=== PATIENT | male | born 1960 | race Hispanic/Latino ===

== ENCOUNTER 2017-06-03 23:10 | Emergency (ER) | payer SELFPAY | END 2017-06-03 23:34 | LOC: EDH 23:10 | DX: Z02.83 Encounter for blood-alcohol and blood-drug test (principal) ==

== ENCOUNTER 2020-11-23 20:23 | Emergency (ER) | payer SELFPAY ==
[~2020-11-23] VITALS: Ht 167.6 cm; Wt 104.3 kg
[2020-11-23 21:03] LABS: APPEARANCE,URINE Clear (CLEAR); BILIRUBIN,URINE Negative (NEGATIVE); COLOR,URINE Yellow (YELLOW); EOSINOPHILS % (AUTO) 2.9 % (0.0-8.0); GLUCOSE, URINE (UA) >=1000 mg/dL (NEGATIVE); HEMATOCRIT 43.1 % (42-54); KETONES,URINE Trace mg/dL (NEGATIVE); LEUKOCYTE ESTERASE ,URINE Negative (NEGATIVE); LYMPHOCYTES % (AUTO) 36.8 % (21.0-51.0); MEAN CORPUSCULAR HEMOGLOBIN 32.7 pg (27.0-33.0); MEAN CORPUSCULAR HGB CONC 34.3 g/dL (32.0-36.0); MEAN CORPUSCULAR VOLUME 95.1 fL (79-99); NITRATE,URINE Negative (NEGATIVE); OCCULT BLOOD,URINE Negative (NEGATIVE); PLATELET COUNT (AUTO) 263 K/uL (130-400); PROTEIN,URINE Negative (NEGATIVE); RED BLOOD CELL COUNT(AUTO) 4.53 MIL/uL (4.50-6.20); RED CELL DISTRIBUTION WIDTH 12.5 % (11.0-15.5); WHITE BLOOD COUNT (AUTO) 7.3 K/uL (4.8-10.8)
[2020-11-23 21:20] LABS: BACTERIA,URINE Rare /HPF (None Seen); MUCUS,URINE Few LPF (None Seen); RBC,URINE 0-1 /HPF (0-1); SQUAMOUS EPITHELIAL CELL,UR 0-2 /HPF (0-2); WBC,URINE 0-1 /HPF (0-1)
[2020-11-23 21:32] LABS: CREATININE 1.1 mg/dL (0.5-1.5); POTASSIUM 3.8 mmol/L (3.5-5.1)
[2020-11-23 21:36] LABS: ALBUMIN 3.7 g/dL (3.5-5.0); BILIRUBIN,TOTAL 0.5 mg/dL (0.2-1.0); CRP QUANTITATIVE 12.7 mg/L (0.00-9.0); TOTAL PROTEIN, SERUM 8.4 g/dL (6.0-8.3)
[2020-11-23 22:36] VITALS: BP 144/85
== END 2020-11-23 22:49 | disposition home or self-care (01) ==
LOC: EDH 20:23
DX: R22.31 Localized swelling, mass and lump, right upper limb (principal); E11.9 Type 2 diabetes mellitus without complications; E78.00 Pure hypercholesterolemia, unspecified; I10 Essential (primary) hypertension; E66.9 Obesity, unspecified; Z68.37 Body mass index [BMI] 37.0-37.9, adult; Z79.01 Long term (current) use of anticoagulants; Z86.718 Personal history of other venous thrombosis and embolism
CPT/HCPCS: 36415; 71045; 80053; 81001; 84484; 85025; 85378; 86140; 93005; 93971

== ENCOUNTER 2022-06-06 11:13 | Emergency (ER) | payer BC ==
[~2022-06-06] VITALS: Ht 167.6 cm; Wt 102.1 kg
[2022-06-06 11:35] LABS: BASOPHILS % (AUTO) 1.1 % (0.0-5.0); EOSINOPHILS % (AUTO) 3.2 % (0.0-8.0); HEMATOCRIT 47.4 % (42-54); LYMPHOCYTES % (AUTO) 30.5 % (21.0-51.0); MEAN CORPUSCULAR HEMOGLOBIN 32.7 pg (27.0-33.0); MEAN CORPUSCULAR HGB CONC 34.2 g/dL (32.0-36.0); MEAN CORPUSCULAR VOLUME 95.6 fL (79-99); MONOCYTES % (AUTO) 10.7 % (3.0-13.0); NEUTROPHILS % (AUTO) 54.2 % (40.0-77.0); PLATELET COUNT (AUTO) 273 K/uL (130-400); RED BLOOD CELL COUNT(AUTO) 4.96 MIL/uL (4.50-6.20); RED CELL DISTRIBUTION WIDTH 13.2 % (11.0-15.5); WHITE BLOOD COUNT (AUTO) 7.1 K/uL (4.8-10.8)
[2022-06-06] MEDS ORDERED: GLIP10TA19 PO (11:35)
[2022-06-06] MEDS ORDERED: LOSA50TA64 PO (11:35)
[2022-06-06] MEDS ORDERED: METF-446 PO (11:35)
[2022-06-06] MEDS ORDERED: APIX5TAB PO (11:35)
[2022-06-06] MEDS ORDERED: AEC81 PO (11:35)
[2022-06-06] MEDS ORDERED: DAPA10TA PO (11:35)
[2022-06-06 11:55] LABS: CREATININE 1.2 mg/dL (0.5-1.5); POTASSIUM 3.8 mmol/L (3.5-5.1)
[2022-06-06 11:59] LABS: ALBUMIN 3.6 g/dL (3.5-5.0); TOTAL PROTEIN, SERUM 7.9 g/dL (6.0-8.3)
[2022-06-06] MEDS ORDERED: IOHEXOL 350 MG/ML 100ML INFUS..BTL IV ONE (15:44)
[2022-06-06 20:17] VITALS: BP 148/62
== END 2022-06-06 20:47 | disposition short-term general hospital (02) ==
LOC: EDH 11:13
DX: I63.9 Cerebral infarction, unspecified (principal); I65.23 Occlusion and stenosis of bilateral carotid arteries; E11.9 Type 2 diabetes mellitus without complications; E78.00 Pure hypercholesterolemia, unspecified; I10 Essential (primary) hypertension; E66.9 Obesity, unspecified; Z79.01 Long term (current) use of anticoagulants; Z79.82 Long term (current) use of aspirin; Z79.84 Long term (current) use of oral hypoglycemic drugs; Z79.899 Other long term (current) drug therapy; Z68.36 Body mass index [BMI] 36.0-36.9, adult; Z20.822 Contact with and (suspected) exposure to COVID-19
CPT/HCPCS: 99285; 70450; 70551; 71045; 87635; 84484; 80053; 85025; 36415; 70496; 70498; 93005 ×2; Q9967